=== PATIENT | female | born 2000 | race Caucasian/White ===

== ENCOUNTER 2022-08-05 10:26 | Inpatient (IN) ==
[2022-08-05] MEDS ORDERED: BETAMETH SODIUM PHOS/ACETATE 30 MG/5 ML VIAL IM SCH ×2 (11:00→23:15)
[2022-08-05 11:39] LABS: Bacteria,Urine Occasional /HPF (Few); Bilirubin,Urine Negative (Negative); Blood, Urine Small mg/dL (Negative); Glucose,Urine (UA) Negative (Negative); Ketones,Urine 5 mg/dL (Negative); Mucus,Urine Few /LPF (Occasional); Nitrite,Urine Negative (Negative); Protein,Urine >=500 mg/dL (Negative); RBC,Urine 4 /HPF (0-4); Squamous Epithelial Cell,Urine Occasional /HPF (0-10); Urine Appearance Slightly Hazy (Clear); Urine Color Yellow (Yellow); Urine Specific Gravity 1.032 (1.001-1.035); Urine Urobilinogen < 2.0 eU/dL (<2.0)
[2022-08-05 15:00] LABS: Basophils % 0.2 % (0.0-0.8); Eosinophils % 0.1 % (0.00-10.9); Hematocrit 34.8 VOL% (35.7-47.0); Hemoglobin 11.6 GM/DL (12.0-16.0); Immature Granulocytes % 1.1 %; Immature Granulocytes Absolute 0.15 #; Lymphocytes # 1.1 10*3/uL (1.4-4.0); Mean Corpuscular HGB Conc 33.3 GM/DL (32-36); Mean Corpuscular Volume 88.8 FL (87-102); Mean Platelet Volume 11.4 FL (9.6-12.0); Monocytes # 0.2 10*3/uL (0.11-0.8); Monocytes % 1.7 % (1.7-12.7); Neutrophils % 88.9 % (38.7-73.9); Platelet Count 272 T/CUMM (130-400); Red Blood Count 3.92 MC/CUMM (3.8-5.5); Red Cell Distribution Width 12.5 % (9.3-17.3); White Blood Count 13.8 T/CUMM (4-12)
[2022-08-05 15:31] LABS: Protein/Creatinine Ratio,Urine 9.7 RATIO
[2022-08-05 15:32] LABS: Alanine Aminotransferase 16 U/L (13-56); Albumin 2.3 G/DL (3.4-5.0); Alkaline Phosphatase 182 U/L (45-117); Aspartate Amino Transferase 19 U/L (0-37); Bilirubin,Direct < 0.050 MG/DL (0.0-0.20); Bilirubin,Total < 0.39 MG/DL (0.20-1.00); Blood Urea Nitrogen 15 MG/DL (7-18); Calcium 8.8 MG/DL (8.5-10.1); Carbon Dioxide 21 MMOL/L (21-32); Chloride 106 MMOL/L (98-107); Glucose 121 MG/DL (74-106); Osmolality,Calculated 274.8 MOS/KG (273-304); Potassium 4.4 MMOL/L (3.5-5.1); Sodium 137 MMOL/L (136-145); Total Protein 6.3 G/DL (6.4-8.2); Uric Acid 6.9 MG/DL (2.6-6.0)
[2022-08-05 15:35] LABS: INR 0.9; PT Patient Result 9.5 SECS (10.1-12.1); Partial Thromboplastin Time 24.3 SECS (23.7-32.9)
[2022-08-06] MEDS ORDERED: miSOPROStoL 200 MCG TABLET RECTAL PRN (01:59)
[2022-08-06] MEDS ORDERED: LACTATED RINGERS 500 ML IV PRN (01:59)
[2022-08-06] MEDS ORDERED: TRANEXAMIC ACID 1,000 MG in SODIUM CHLORIDE 0.9% 100 ML IV PRN (01:59)
[2022-08-06] MEDS ORDERED: LACTATED RINGERS 250 ML IV ONE (01:59)
[2022-08-06] MEDS ORDERED: METHYLERGONOVINE 0.2 MG/1 ML AMP IM PRN (01:59)
[2022-08-06] MEDS ORDERED: ONDANSETRON 4 MG/2 ML VIAL IV PRN (01:59)
[2022-08-06] MEDS ORDERED: CARBOPROST TROMETHAMINE 250 MCG/ML AMP IM PRN (01:59)
[2022-08-06] MEDS ORDERED: OXYTOCIN/LR 20 UNIT/1,000 ML BAG IV ONE (01:59)
[2022-08-06] MEDS ORDERED: LACTATED RINGERS 1,000 ML IV SCH (02:00)
[2022-08-06] MEDS: OXYTOCIN/LR 20 UNIT/1,000 ML BAG IV SCH ×2 (05:28→17:45)
[2022-08-06] MEDS ORDERED: MEPERIDINE 25 MG/1 ML VIAL IV PRN (11:32)
[2022-08-06] MEDS ORDERED: CARBOPROST TROMETHAMINE 250 MCG/ML AMP IM ONE (12:21)
[2022-08-06] MEDS ORDERED: METHYLERGONOVINE 0.2 MG/1 ML AMP ONE (12:21)
[2022-08-06] MEDS ORDERED: miSOPROStoL 200 MCG TABLET ONE (12:21)
[2022-08-06 13:06] LABS: Cord Arterial Blood HCO3 13.5 MMOL/L
[2022-08-06 13:09] LABS: Cord Venous Blood HCO3 14.8 MMOL/L; Cord Venous Blood PCO2 69.6 MMHG; Cord Venous Blood PO2 < 17
[2022-08-06] MEDS ORDERED: IBUPROFEN 800 MG TABLET PO PRN (16:20)
[2022-08-07 05:23] LABS: Basophils % 0.1 % (0.0-0.8); Hematocrit 31.1 VOL% (35.7-47.0); Hemoglobin 10.2 GM/DL (12.0-16.0); Immature Granulocytes % 1.5 %; Immature Granulocytes Absolute 0.32 #; Lymphocytes # 2.6 10*3/uL (1.4-4.0); Mean Corpuscular HGB Conc 32.8 GM/DL (32-36); Mean Corpuscular Volume 89.6 FL (87-102); Mean Platelet Volume 11.4 FL (9.6-12.0); Monocytes # 1.4 10*3/uL (0.11-0.8); Monocytes % 6.6 % (1.7-12.7); NRBC # 0.02 10*3/uL; Neutrophils % 79.8 % (38.7-73.9); Platelet Count 304 T/CUMM (130-400); Red Blood Count 3.47 MC/CUMM (3.8-5.5); Red Cell Distribution Width 12.6 % (9.3-17.3); White Blood Count 21.7 T/CUMM (4-12)
[2022-08-07 05:43] LABS: Lymphocytes 10 % (20-55); Metamyelocytes 1 %; Total Cells Counted 100
[2022-08-07 05:44] LABS: Hypochromia Slight; Microcytosis Slight
[2022-08-07 05:45] LABS: Platelet Estimate Normal
[2022-08-07] MEDS: DOCUSATE SODIUM 100 MG CAPSULE PO SCH ×2 (10:24→21:10)
[2022-08-07] MEDS: MULTIVITAMIN (PRENATAL) TABLET PO SCH (10:24)
[2022-08-08 09:50] VITALS: BP 137/91
[2022-08-08] MEDS: MULTIVITAMIN (PRENATAL) TABLET PO SCH (10:08)
[2022-08-08] MEDS: DOCUSATE SODIUM 100 MG CAPSULE PO SCH (10:09)
== END 2022-08-08 13:20 | disposition home or self-care (01) | DRG 807 ==
LOC: N.LDOUT 10:26 → N.LD 10:28 → N.OB 08-06 15:50
PROVIDERS: ADMIT Obstetrics & Gynecology; ATTEND Obstetrics & Gynecology